=== PATIENT | male | born 1980 | race Caucasian/White ===

== ENCOUNTER 2024-05-15 10:09 | Emergency (ER) | payer OTHER ==
[~2024-05-15] VITALS: Ht 175.3 cm; Wt 93.8 kg
[2024-05-15] MEDS ORDERED: ESCITALOPRAM OX10 MG PO (10:21)
[2024-05-15] MEDS ORDERED: CETIRIZINE HCL10 MG PO (10:22)
[2024-05-15] MEDS ORDERED: MIRTAZAPINE15 MG PO (10:22)
[2024-05-15] MEDS ORDERED: DICLOFENAC SODI50 GM TOP (10:23)
[2024-05-15] MEDS ORDERED: OMEPRAZOLE20 MG PO (10:23)
[2024-05-15] MEDS ORDERED: VITAMIN D350 MC3 PO (10:24)
[2024-05-15] MEDS ORDERED: OXYCODONE/APAP 5/325 TAB PO ONE (12:45)
[2024-05-15 13:20] VITALS: BP 128/88
== END 2024-05-15 13:21 | disposition other institution, planned readmission (95) ==
LOC: ED 10:09
DX: S62.514A Nondisplaced fracture of proximal phalanx of right thumb, initial encounter for closed fracture (principal); W20.8XXA Other cause of strike by thrown, projected or falling object, initial encounter; Z79.899 Other long term (current) drug therapy
CPT/HCPCS: 29130; 73140; 99283-25